=== PATIENT | female | born 1940 | race Caucasian/White ===

== ENCOUNTER 2018-01-21 10:33 | Emergency (ER) | payer MEDICARE ==
--- NOTE | 2018-01-21 11:34 | ER Document Report ---
ED Extremity Problem, Lower - General Chief Complaint: Leg Pain Stated Complaint: LEFT LEG PAIN Time Seen by Provider: 01/21/18 11:15 Mode of Arrival: Wheelchair Information source: Patient Notes: 77-year-old female presented to ED for complaint of left knee pain. She states her knee was bent when her sister fell over landing on her leg. She states she has not been able to stand on her legs since this accident. She states she has used ice and heat and Tylenol with no relief. She is alert and respirations regular and unlabored speaking in full sentences but is not able to bear weight on this leg. TRAVEL OUTSIDE OF THE [place] IN LAST 30 DAYS: No - HPI Patient complains to provider of: Injury, Pain Location: Knee - Left Occurred: Yesterday Where: Indoors - Family's house Onset/Duration: Sudden, Persistent Quality of pain: Sharp, Throbbing Severity: Severe Pain Level: 5 Context: Other - Leg was bent when her sister fell on it Recent injury: Yes Associated symptoms: Unable to bear weight Exacerbated by: Hanging down, Movement Relieved by: Elevation, Ice - Related Data Allergies/Adverse Reactions: erythromycin base Allergy (Verified 01/21/18 10:40) metronidazole [From Flagyl] Allergy (Verified 01/21/18 10:40) Penicillins Allergy (Verified 01/21/18 10:40) Past Medical History - General Information source: Patient - Social History Smoking Status: Never Smoker Cigarette use (# per day): No Chew tobacco use (# tins/day): No Smoking Education Provided: No Frequency of alcohol use: Social Drug Abuse: None Lives with: Alone Family History: Reviewed & Not Pertinent Patient has suicidal ideation: No Patient has homicidal ideation: No - Past Medical History Cardiac Medical History: Reports: Hx Atrial Fibrillation, Hx Hypercholesterolemia, Hx Hypertension Pulmonary Medical History: Reports: Hx Asthma EENT Medical History: Reports: None Neurological Medical History: Reports: None Endocrine Medical History: Reports: None Renal/ Medical History: Reports: None Malignancy Medical History: Reports: Hx Lymphoma GI Medical History: Reports: Hx Irritable Bowel, Hx Colonoscopy, Hx Endoscopy Musculoskeletal Medical History: Reports Hx Arthritis Skin Medical History: Reports None Psychiatric Medical History: Reports: None Traumatic Medical History: Reports: None Infectious Medical History: Reports: None Past Surgical History: Reports: Hx Gynecologic Surgery - ablation x2, ovary removed - Immunizations Immunizations up to date: Yes Review of Systems - Review of Systems Constitutional: No symptoms reported EENT: No symptoms reported Cardiovascular: No symptoms reported Respiratory: No symptoms reported Gastrointestinal: No symptoms reported Genitourinary: No symptoms reported Female Genitourinary: No symptoms reported Musculoskeletal: Joint pain, Joint swelling, Muscle pain Skin: No symptoms reported Hematologic/Lymphatic: No symptoms reported Neurological/Psychological: No symptoms reported -: Yes All other systems reviewed and negative Physical Exam - Vital signs Vitals: Temp Pulse Resp BP Pulse Ox 99.2 F 65 16 157/75 H 97 01/21/18 10:54 01/21/18 10:54 01/21/18 10:54 01/21/18 10:54 01/21/18 10:54 Interpretation: Normal - General General appearance: Appears well, Alert - HEENT Head: Normocephalic, Atraumatic Eyes: Normal Pupils: PERRL - Respiratory Respiratory status: No respiratory distress Chest status: Nontender Breath sounds: Normal Chest palpation: Normal - Cardiovascular Rhythm: Regular Heart sounds: Normal auscultation Murmur: No - Abdominal Inspection: Normal Distension: No distension Bowel sounds: Normal Tenderness: Nontender Organomegaly: No organomegaly - Back Back: Normal, Nontender - Extremities General upper extremity: Normal inspection, Nontender, Normal color, Normal ROM , Normal temperature General lower extremity: Normal color, Normal temperature. No: Lilian's sign Knee: Tender, Joint effusion, Laxity with valgus stress, Laxity with varus stress, Pain with ROM, Patellar tendon intact, Tender joint line, Unable to bear weight. No: Abrasion, Deformity, Dislocation, Drawer's test instability, Ecchymosis, Instability, Laceration Ankle: Normal, Nontender Foot: Normal, Nontender - Neurological Neuro grossly intact: Yes Cognition: Normal Orientation: AAOx4 Domo Coma Scale Eye Opening: Spontaneous Domo Coma Scale Verbal: Oriented [place] Coma Scale Motor: Obeys Commands Domo Coma Scale Total: 15 Speech: Normal Motor strength normal: LUE, RUE, LLE, RLE Sensory: Normal - Psychological Associated symptoms: Normal affect, Normal mood - Skin Skin Temperature: Warm Skin Moisture: Dry Skin Color: Normal Course - Re-evaluation Re-evalutation: 01/21/18 12:[address] Cortez concerning the x-ray and the history and physical of the knee. She recommended an MRI be done. An MRI was ordered. 01/21/18 19:58 MRI showed a incomplete tibial plateau fracture a proximal fibula fracture a torn meniscus lateral and a suprapatella effusion. Patient was treated with a long leg posterior splint crutches and discharged home with a prescription for [place]. Patient was discharged with a written report of the x-ray and MRI as well as a CD of the x-ray and MRI. Patient states she will be returning to [place] on Saturday. She and her family stated they will call the orthopedics tomorrow for in [place] and follow-up with orthopedics when they get home. Dr. Ferrera the on-call orthopedic cast specialist was called concerning the results of the MRI and he stated that a posterior splint crutches elevation ice and narcotics with the treatment for this fracture. He states that it would be okay for the patient to return to [place] for further treatment or she can come to his office if she desired. Patient stated she would return home. - Vital Signs Vital signs: Temp Pulse Resp BP Pulse Ox 98.7 F 77 16 146/71 H 97 01/21/18 15:45 01/21/18 15:45 01/21/18 15:45 01/21/18 15:45 01/21/18 15:45 - Diagnostic Test Radiology reviewed: Image reviewed, Reports reviewed Procedures - Immobilization Left Knee Time completed: 16:50 Immobilizer type: Crutches, Long leg posterior, Shoulder immobilizer - earlier until MRI Performed by: PCT Post-Proc Neuro Vasc Exam: Normal Alignment checked and good: Yes Discharge - Discharge Clinical Impression: Internal derangement of knee involving lateral meniscus Tibial plateau fracture, left Qualifiers: Encounter type: initial encounter Fracture type: closed Qualified Code(s): S82.142A - Displaced bicondylar fracture of left tibia, initial encounter for closed fracture Closed fracture fibula, head Qualifiers: Encounter type: initial encounter Laterality: left Qualified Code(s): S82.832A - Other fracture of upper and lower end of left fibula, initial encounter for closed fracture Condition: Stable Disposition: HOME, SELF-CARE Additional Instructions: Fractured Tibia You have a fracture of the tibia, the estrada bone. The physician has assessed the seriousness of this fracture and has determined that no operation or hospitalization is required. The fracture should heal well, but must be monitored by re-examination and possibly X-rays. The initial treatment of this fracture is immobilization, ice packs, and elevation. A tibial fracture requires protection for about four to eight weeks, depending on the nature of the fracture and the age of the patient. Usually, a long-leg cast is required. Often no weight-bearing can be allowed at first despite casting. This type of fracture sometimes does not heal well. You MUST follow the doctors instructions, and call the doctor if you have any problems. Call the doctor or return at once if pain becomes severe, or if numbness or weakness develops in the foot or toes. Your fibular head is also fractured which needs the same treatment of immobilization ice packs and elevation. You also have a meniscus tear and arthritis in the knee as well as a knee effusion. SPLINT PRECAUTIONS: A splint has been placed. This will protect the area while healing begins. It MUST, however, be held still! Keep the splint on ALL THE TIME until instructed to remove it by the doctor. As you begin to use the area, be careful. You shouldn't do anything which causes discomfort -- you may disturb the injury even with the splint in place. If there is unexpected severe pain, or numbness, discoloration, or swelling beyond the splint, you should return at once. If you feel that the splint has broken or become loose, come back. SUSPECTED INTERNAL KNEE INJURY: The examiner of your injured knee suspects an internal injury to the cartilage or internal ligaments. This must be further investigated by an orthopedic cast specialist. The knee should be protected, ice packed, and elevated while awaiting your follow-up exam by the orthopedist. If there is severe swelling, severe pain, or any new symptoms while awaiting your exam, you should call the orthopedist. (If he/she is unavailable, call us or return for re-examination.) USE OF CRUTCHES: The doctor has recommended that you not bear weight at this time. You will need to use crutches. Adjust the crutches so the tops come to about two inches under the armpit while you are standing upright. Use your hands -- not your armpits -- to support your weight. To get into a chair, support yourself with one crutch on the injured side. Hold the chair with the other hand, then lower yourself while putting all your weight on the good leg. Going up stairs is `good leg up, step up, then bring up crutches and bad leg.' Down stairs is `bad leg and crutches down, then bring good leg down.' If you develop numbness or swelling in an arm or hand, you are using the crutches incorrectly. Return if you are having any problems with the crutches. ICE & ELEVATION: Apply ice packs frequently against the painful area. Many different schedules are recommended, such as "20 minutes on, 20 minutes off" or "one hour ice, two hours rest." If you need to work, you may need to go longer between ice treatments. You should plan to have the area ice packed AT LEAST one- fourth of the time. The ice should be applied over the wrap, tape, or splint, or over a layer of cloth -- not directly against the skin. Some ice bags have a built-in cloth and can be put directly on the skin. Your injured part should be elevated as much as possible over the next 48 hours. Try to keep the injury above the level of the heart. Avoid use of the injured area. Elevation and rest will decrease the swelling. ORAL NARCOTIC MEDICATION: You have been given a prescription for pain control. This medication is a narcotic. It's best taken with food, as nausea can result if taken on an empty stomach. Don't operate machinery or drive within six hours of taking this medication. Do not combine this medicine with alcohol, or with any medication which can cause sedation (such as cold tablets or sleeping pills) unless you get permission from the physician. Narcotics tend to cause constipation. If possible, drink plenty of fluids and eat a diet high in fiber and fruits. Please be aware that prescription narcotics also have the potential for abuse. People become addicted to these medications because of the general sense of wellbeing that they induce. This feeling along with a significant reduction in tension, anxiety, and aggression provides a stimulating seductive quality to these drugs. Once your pain is under control, we encourage you to discard your unused narcotics. FOLLOW-UP CARE: If you have been referred to a physician for follow-up care, call the physician s office for an appointment as you were instructed or within the next two days. If you experience worsening or a significant change in your symptoms, notify the physician immediately or return to the Emergency Department at any time for re-evaluation. Prescriptions: Hydrocodone/Acetaminophen [[place] 5-325 mg Tablet] 1 tab PO Q6HP PRN #14 tablet PRN Reason: Forms: Elevated Blood Pressure
--- NOTE | 2018-01-21 12:15 | RADIOLOGY REPORT (SQ) ---
EXAM DESCRIPTION: KNEE LEFT 4 VIEW COMPLETED DATE/TIME: 01/21/2018 11:39 am REASON FOR STUDY: someone fell on her injurying her knee lateral knee pain radiating to the anterior aspect of the tibia and fibula, post injury last night without penetrating wound or open wound. COMPARISON: None. NUMBER OF VIEWS: Four views. TECHNIQUE: AP, lateral, and both oblique radiographic images acquired of the left knee. LIMITATIONS: None. FINDINGS: MINERALIZATION: Osteopenic BONES: No acute fracture JOINT: Large suprapatellar knee joint effusion likely indicates internal derangement. There is moder ate medial compartment joint space narrowing with a small osteochondral defect and surrounding sclero sis weight-bearing surface medial femoral condyle, chronic in appearance. SOFT TISSUES: No soft tissue swelling. No radio-opaque foreign body. OTHER: Report discussed with [place] in the emergency room IMPRESSION: Large suprapatellar knee joint effusion worrisome for internal derangement Chronic medial compartment osteoarthritis TECHNICAL DOCUMENTATION: JOB ID: [id number] [employer]- All Rights Reserved Reading location - IP/workstation name: [email or web address]
[2018-01-21] MEDS ORDERED: ACETAMINOPHEN 325 MG TABLET PO ONE (13:04)
[2018-01-21 15:46] VITALS: BP 146/71
--- NOTE | 2018-01-21 15:55 | RADIOLOGY REPORT (SQ) ---
EXAM DESCRIPTION: MRI LT LOWER JOINT WITHOUT COMPLETED DATE/TIME: 01/21/2018 3:32 pm REASON FOR STUDY: left knee injury pain spoke with Dr lynn COMPARISON: Left knee films 01/21/2018 TECHNIQUE: Leftknee images acquired and stored on PACS. Multiplanar images include fat sensitive se quences as T1, water sensitive sequences as FST2 or STIR, cartilage sensitive sequences as FSPD, and gradient echo sequences. LIMITATIONS: None. FINDINGS: JOINT AND BURSAE: Large suprapatellar knee joint effusion present BONE CORTEX AND MARROW: Incomplete nondepressed lateral tibial plateau fracture with a band of edema along the lateral tibial metaphysis, best shown on coronal images 15-20 and sagittal image 19. There is also a hairline incomplete nondisplaced fracture the proximal fibula best shown on axial image 25 and coronal image 22. ACL: Intact. No degeneration or ganglion cyst. PCL: Intact. MCL: Intact. No periligamentous edema or fluid. LCL: Intact. No periligamentous edema or fluid. MEDIAL MENISCUS: Chronic horizontal tear through the midbody and posterior horn medial meniscus. No parameniscal cyst. LATERAL MENISCUS: Diffuse horizontal tear throughout the anterior horn midbody and posterior horn lat eral meniscus without parameniscal cyst, best shown on coronal images 16-19 and sagittal images 20-22 . MEDIAL COMPARTMENT: High-grade chondromalacia in the medial compartment. There is subcortical edema in the medial edge medial femoral condyles and medial tibial plateau with bony spurring. LATERAL COMPARTMENT: Mild chondromalacia lateral compartment. No bony spurring PATELLA: Medial patellar facet chondromalacia. No subchondral cysts. Medial and lateral retinacula in tact. EXTENSOR MECHANISM: Intact. Quadriceps and patella tendons normal. SOFT TISSUES: Adjacent muscles and subcutaneous tissues normal. Normal flow void in popliteal artery and vein. OTHER: No other significant finding. IMPRESSION: Large suprapatellar knee joint effusion Incomplete nondepressed lateral tibial plateau fracture and fibular head fracture Diffuse lateral meniscus tear TECHNICAL DOCUMENTATION: JOB ID: [id number] [employer]- All Rights Reserved Reading location - IP/workstation name: [email or web address]
== END 2018-01-21 17:02 | disposition home or self-care (01) ==
LOC: ER 10:33
PROC: 2W3MX1Z Immobilization of Left Lower Extremity using Splint (ICD-10-PCS; principal; 2018-01-21)
DX: S82.142A Displaced bicondylar fracture of left tibia, initial encounter for closed fracture (principal); S82.832A Other fracture of upper and lower end of left fibula, initial encounter for closed fracture; M23.301 Other meniscus derangements, unspecified lateral meniscus, left knee; W03.XXXA Other fall on same level due to collision with another person, initial encounter; Y92.009 Unspecified place in unspecified non-institutional (private) residence as the place of occurrence of the external cause; Z88.3 Allergy status to other anti-infective agents; Z88.0 Allergy status to penicillin; I48.91 Unspecified atrial fibrillation; E78.00 Pure hypercholesterolemia, unspecified; I10 Essential (primary) hypertension
CPT/HCPCS: 99283; 73721; 73564; 29505; L1830; A9270